=== PATIENT | female | born 1985 | race Caucasian/White ===

== ENCOUNTER 2024-01-18 21:17 | Emergency (ER) | payer BC, SELFPAY ==
--- NOTE | 2024-01-18 21:21 | ED.GENADULT ---
HPI - General Adult General Date Seen: 01/18/24 Chief complaint: Unspecified Complaint, Adult Stated complaint: facial pain, shortness of breath Time Seen by Provider: 01/18/24 21:21 History of Present Illness HPI narrative: This is a pleasant 39-year-old female who has no long-term medical conditions, but recent elevated blood pressure readings in her primary care office. She is now on losartan for high blood pressure. Patient reports that over the past several months she has had significant weight gain of unclear etiology. She has been working with her primary care doctor for that and has been referred to an sr. manager marketing, but that appointment is still delayed a few more weeks. Because of high blood pressure readings noted in the office a couple of weeks ago she is now on losartan for high blood pressure. She has also had lab checks that were ?normal? in the doctor's office a month or 2 ago and again a few weeks ago. She recalls that about a month ago she had an episode where she had a bad left facial and left-sided headache that lasted a couple of days and was associated with nausea and vomiting. It got better. She started having another episode of headache like that yesterday afternoon. She was at her friend's house when the headache started. It was nonexertional. The headache was not abrupt in onset or severe in onset. It started gradually and has been getting steadily worse since yesterday. No known injury. No known carbon monoxide exposure. No stiff neck. No photophobia. No blurry vision. No unilateral numbness or tingling. She does note that today with her headache getting where she is having a little bit of numbness in her left forearm and hand, right hand, and a little bit in her feet. No sore throat. No nasal congestion. No cough. No known influenza exposure. No fevers at home. She was noted to have a low-grade fever at the time of triage of 99.7. She was surprised by this. She also notes that her blood pressure was a bit elevated this morning and she recheck this afternoon is a headache got worse and it went higher. She is not having any chest pain. No swelling in her legs. No change in urination. She does not think she is . Related Data Home Medications Medication Instructions Recorded Confirmed cyclobenzaprine 10 mg tablet 10 mg PO PRN 01/18/24 01/18/24 losartan 25 mg tablet 25 mg PO DAILY 01/18/24 01/18/24 Allergies Allergy/AdvReac Type Severity Reaction Status Date / Time No Known Drug Allergies Allergy Verified 01/18/24 21:25 [facility] Social History Smoking Status: Never smoker Do you use any of these nicotine containing products: None How often do you have a drink containing alcohol: never AUDIT-C Alcohol total score: 0 Non-prescribed substance use: denies use Exam Narrative: Exam Narrative: Constitutional: Appears well-developed and well-nourished. Alert. Conversant. Non toxic. HENT: Head: Atraumatic. No depressed skull fracture, Raccoon Eyes, Toure's sign, or hemotympanum. Face normal. TMs normal Nose: Nose normal. No sinus tenderness to percussion. Mouth/Throat: Oral mucosa is clear and moist. no trismus. Pharynx normal. Tonsils symmetric. No tonsillar enlargement, erythema, or exudate. Eyes: Conjunctivae normal. EOM normal. Pupils equal, round, and reactive to light. No scleral icterus. Neck: Normal range of motion. Neck supple. No tracheal deviation present. No stiffness. No JVD Cardiovascular: Normal rate, regular rhythm. No gallop. No friction rub. No murmur heard. Symmetric radial and PT artery pulses Pulmonary/Chest: Effort normal. No stridor. No respiratory distress. No wheezes. No rales. No rhonchi . Abdominal: Soft. No distension. No mass. No tenderness. No rebound. No guarding. Musculoskeletal: RUE: Normal range of motion. No tenderness. No deformity LUE: Normal range of motion. No tenderness. No deformity RLE: Normal range of motion. No edema. No tenderness. No deformity LLE: Normal range of motion. No edema. No tenderness. No deformity Neurological: Mental status normal. Attention normal. Alert and oriented x3. GCS 15. Memory normal. Speech fluent. Cognition normal. Cranial Nerves intact II-XII except I did not formally test gag or visual acuity. EOMI. Palate elevates symmetrically and tongue protrudes in the midline. 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 coordination normal. Gait normal. Skin: Skin is warm and dry. No rash noted. No pallor. Normal capillary refill. Psychiatric: Normal mood. Normal affect. Const: Vital Signs, click to edit/add: Vital Signs - 24 hr 01/18/24 21:24 01/18/24 21:57 01/18/24 22:27 Temperature 99.9 F H Pulse Rate 88 Pulse Rate [Right Pulse Oximeter] 84 Respiratory Rate 20 20 Blood Pressure 138/103 H Blood Pressure [Ri ght Upper Arm] 191/104 H Pulse Oximetry 99 98 95 Oxygen Delivery Me thod Room Air 01/18/24 22:34 Temperature 99.9 F H Pulse Rate Pulse Rate [Right Pulse Oximeter] Respiratory Rate Blood Pressure Blood Pressure [Ri ght Upper Arm] Pulse Oximetry Oxygen Delivery Me thod Course Course ED Course: Recheck-headache improving. Much better but not gone. Reevaluation(s) Reevaluation #1: Recheck-headache further improved. Now complaining of pain at her IV site. I evaluated. It looks like her IV infiltrated and she has some saline underneath the skin. I turned off the IV. I asked nurses to check the IV site of the agree it is infiltrated remove the IV. She had received her headache pain medications about 45 minutes prior to infiltration of the IV. I think this is only infiltration of saline which should improve with conservative treatment. Reevaluation #2: Recheck-labs back and reassuring. Patient continued to feel better. She is comfortable discharging home. Vital Signs Vital signs: Initial Vital Signs Temperature 99.9 F H 01/18/24 21:24 Temperature Source Temporal Artery Scan 01/18/24 21:24 Pulse Rate 84 01/18/24 21:24 Respiratory Rate 20 01/18/24 21:24 Blood Pressure 191/104 H 01/18/24 21:24 Blood Pressure Mean 133 H 01/18/24 21:24 Blood Pressure Position Sitting 01/18/24 21:24 Pulse Oximetry 99 01/18/24 21:24 Oxygen Delivery Method Room Air 01/18/24 21:24 Vital Signs Temperature 99.9 F H 01/18/24 21:24 Pulse Rate 84 01/18/24 21:24 Respiratory Rate 20 01/18/24 21:24 Blood Pressure 191/104 H 01/18/24 21:24 Pulse Oximetry 99 01/18/24 21:24 Oxygen Delivery Method Room Air 01/18/24 21:24 Temperature 99.9 F H 01/18/24 22:34 Pulse Rate 88 01/18/24 22:27 Respiratory Rate 20 01/18/24 22:27 Blood Pressure 138/103 H 01/18/24 22:27 Pulse Oximetry 95 01/18/24 22:27 Oxygen Delivery Method Room Air 01/18/24 21:24 Medications Administered Medications: Discontinued Medications Generic Name Dose Route Start Last Admin Trade Name Iasiahq PRN Reason Stop Dose Admin Diphenhydramine HCl 12.5 mg 01/18/24 21:40 01/18/24 21:30 Diphenhydramine 50 Mg/Ml Inj IVP 01/18/24 21:41 12.5 mg ONCE ONE Administration Sodium Chloride 1,000 mls @ 1,000 mls/hr 01/18/24 21:45 01/18/24 22:34 0.9 % Sodium Chloride 1000 Ml IV 01/18/24 22:44 Infused .Q1H LORELEI Infusion Ketorolac Tromethamine 15 mg 01/18/24 21:40 01/18/24 21:30 Ketorolac 15 Mg/Ml Inj IVP 01/18/24 21:41 15 mg ONCE ONE Administration Metoclopramide HCl 10 mg 01/18/24 21:40 01/18/24 21:30 Metoclopramide Hcl 5 Mg/Ml Inj IVP 01/18/24 21:41 10 mg ONCE ONE Administration Medical Decision Making MDM Narrative Medical decision making narrative: Ths patient presents with a left-sided facial pain/headache, as well as high blood pressure readings at home. Along with this she had also reported to the triage nurse some shortness of breath at home and tingling in her hands and feet. A broad differential diagnosis was considered including tension, migraine, analgesic rebound, occipital neuralgia, etc. Other less common but serious causes considered included meningitis, encephalitis, subarachnoid bleed, stroke, tumor, etc. headache was not abrupt in onset or maximal within 1 hour of onset and history provided really does not suggest aneurysmal subarachnoid hemorrhage or cervical artery dissection. However with no previous neuro imaging we did go ahead with noncontrast CT and it is normal. At this point I do not think the patient needs lumbar puncture to further evaluate for subarachnoid hemorrhage. Although she has low-grade fever she is clinically nontoxic, has no neck stiffness and I do not think she has bacterial meningitis. At this point the risk of lumbar puncture and post is dural puncture headache would outweigh the potential benefit. She also had elevated blood pressure readings when she presented. She describes her blood pressure rising throughout the day today as her headache got worse. Suspect the pain is probably driving her headache up. There is no focal deficits to suggest stroke. She is not . At this point I do not think she needs MR imaging to look for press. No visual symptoms to suggest pseudotumor cerebri. Laboratory workup for hypertension shows no sign of acute end-organ damage. Blood pressure actually came down from maximum of 191/110 down to about 160/80 after treatment of her headache. In terms of the fever, cause is unclear. She only has a low-grade temperature. No other symptoms to clearly guide treatment. No signs his sinusitis on her head CT and no recent nasal congestion or other symptoms to clearly suggest sinusitis. No urinary symptoms. No cough. COVID/influenza/RSV swab negative. Fever could potentially be viral. Patients questions were answered and they feel improved after above interventions in ED. Supportive outpatient management is therefore indicated. Headache precautions given for home. Lab Data Labs: Lab Results 01/18/24 01/18/24 Range/Units 21:48 21:57 WBC 5.81 (4.50-11.00) K/uL RBC 4.83 (4.00-5.20) m/uL Hgb 11.0 L (12.0-16.0) gm/dL Hct 35.2 (33.0-51.0) % MCV 73 L (80-100) fL MCH 23 L (26-34) pg MCHC 31 L (32-36) gm/dL RDW Coeff of Carlos 15.7 H (11.5-15.5) % Plt Count 282 (140-440) K/uL Neut % (Auto) 57.7 (42.0-72.0) % Lymph % (Auto) 29.4 (20-44) % Gregg % (Auto) 10.3 (0.0-11.0) % Eos % (Auto) 2.2 (0.0-7.0) % Baso % (Auto) 0.2 (0.0-3.0) % Neut # (Auto) 3.35 (1.7-7.0) K/uL Lymph # (Auto) 1.71 (0.90-2.90) K/uL Gregg # (Auto) 0.60 (0.00-0.90) K/UL Eos # (Auto) 0.13 (0.00-0.50) K/uL Baso # (Auto) 0.01 (0.00-0.30) K/uL Abs Immat Gran (auto) 0.01 (0.00-0.30) K/uL Imm/Tot Granulo (auto) 0.2 % Sodium 135 (135-149) mmol/L Potassium 3.9 (3.6-5.1) mmol/L Chloride 104 (96-114) mmol/L Carbon Dioxide 22 (20-32) mmol/L Anion Gap 9 (7-15) mEq/L BUN 16 (5-24) mg/dL Creatinine 0.5 (0.5-1.5) mg/dL Estimated Creat Clear 144.21 Estimated GFR 124 ml/min Glucose 114 (60-115) mg/dL Calcium 8.8 (8.4-10.6) mg/dL Troponin I < 0.01 L (0.01-0.04) ng/mL HCG, Qual Negative (Negative) SARS-CoV-2 (PCR) Negative SARS-CoV-2 (Negative) Influenza Type A (PCR) Negative PCR FLU A (Negative) Influenza Type B (PCR) Negative PCR FLU B (Negative) RSV (PCR) Negative PCR RSV (Negative) Imaging Data CT scan - head: Attestation: I have reviewed the pertinent imaging results. Radiologist's impression: IMPRESSION: 1. No evidence of acute infarction, intracranial hemorrhage, or mass-effect seen. ECG Data Attestation: I personally reviewed and interpreted this ECG as follows: Interpretation: Normal sinus rhythm Rate: 80 NV: 154 QRS axis: Normal axis. No pathologic Q-waves. No delta waves. ST segment/T wave: No ST segment elevation or depression QTc: 433 Discharge Plan Discharge Clinical Impression: Fever, Headache, High blood pressure Patient Disposition: Home, Self-Care Condition: Stable Instructions: Fever in Adults (ED), Acute Headache (DC) Additional Instructions: As we discussed, please monitor your symptoms carefully. If you have any problems, come back to the ER right away, especially if you have worsening headache, higher fever, blurry vision, nausea or vomiting, or stiff neck. Please recheck with your regular doctors soon as possible to recheck your blood pressure and with your sr. manager marketing as soon as possible. Prescriptions: No Action losartan 25 mg tablet 25 mg PO DAILY cyclobenzaprine 10 mg tablet 10 mg PO PRN Follow Up/Referrals: Bernice Mcnair MD [Primary Care Provider] - Stand Alone Forms: [employer] Management Info Instructions
[2024-01-18 21:24] VITALS: BP 191/104; PULSE 84; RESP 20; TEMP 37.7; O2SAT 99; BMI 36.5
[2024-01-18] MEDS: 0.9 % SODIUM CHLORIDE 1000 ml 1,000 ML IV (21:30)
[2024-01-18] MEDS: METOCLOPRAMIDE HCL 5 MG/ML INJ 10 MG IVP (21:30)
[2024-01-18] MEDS: KETOROLAC 15 MG/ML inj IVP (21:30)
[2024-01-18] MEDS: diphenhydrAMINE 50 MG/ML inj 12.5 MG IVP (21:30)
--- NOTE | 2024-01-18 21:40 | CT_ITS ---
Patient: GAVIN GOMEZ Facility:?[facility] Patient ID:?[id number] Site Patient ID:?[id number]. Site :?[id number] Study:?CT-Head W/O-01/18/2024 10:12:25 PM Ordering Physician:AMOS Final Report: INDICATION: Frontal headache TECHNIQUE: CT Head without i.v. contrast. Coronal and sagittal reformats were obtained. COMPARISON: None FINDINGS: CSF space: The ventricles are normal for age. Brain: No evidence of mass, acute infarction or hemorrhage is seen. No mass- effect or midline shift is seen. The brain parenchyma is otherwise normal in appearance with preservation of the brandon-white matter junction. Calvarium: The visualized paranasal sinuses are well aerated. The mastoid air cells are clear. The visualized orbits are grossly unremarkable. The calvarium is unremarkable in appearance with no fractures identified. IMPRESSION: 1. No evidence of acute infarction, intracranial hemorrhage, or mass-effect seen. Please note that all CT scans at this facility use dose modulation, iterative reconstruction, and/or weight-based dosing when appropriate to reduce radiation dose to as low as reasonably achievable. Dictated by: Vikash Mueller MD @ 01/18/2024 22:19:13 Signed by:?Vikash Mueller MD @01/18/2024 10:19:13 PM (Electronic Signature)
[2024-01-18 21:57] VITALS: O2SAT 98
[2024-01-18 22:03] LABS: Basophils Absolute Auto 0.01 K/uL (0.00-0.30); Basophils Percent Auto 0.2 % (0.0-3.0); Eosinophils Absolute Auto 0.13 K/uL (0.00-0.50); Eosinophils Percent Auto 2.2 % (0.0-7.0); Hematocrit 35.2 % (33.0-51.0); Immature Granulocytes Abs Auto 0.01 K/uL (0.00-0.30); Immature Granulocytes Pct Auto 0.2 %; Lymphocytes Absolute Auto 1.71 K/uL (0.90-2.90); Lymphocytes Percent Auto 29.4 % (20-44); Mean Corpuscular HGB Conc 31 gm/dL (32-36); Mean Corpuscular Hemoglobin 23 pg (26-34); Mean Corpuscular Volume 73 fL (80-100); Monocytes Percent Auto 10.3 % (0.0-11.0); Neutrophils Absolute Auto 3.35 K/uL (1.7-7.0); Neutrophils Percent Auto 57.7 % (42.0-72.0); Platelet Count* 282 K/uL (140-440); RDW Coefficient of Variation % 15.7 % (11.5-15.5); Red Blood Count 4.83 m/uL (4.00-5.20); White Blood Count* 5.81 K/uL (4.50-11.00)
--- OUTSIDE RECORDS SUMMARY | 2024-01-18 22:03 | XMS_ITS | Clinical Summary ---
Author Name Unknown Organization [facility] Address [place], [place] [address] Care Team Providers Care Hat Sizer Name Role Phone Bernice Mcnair MD Primary Care Provider Allergies Active Allergy Reactions Criticality Noted Date Comments Hydrocodone-Acetaminophen Vomiting 03/27/2009 Medications Medication Sig Dispensed Refills Start Date End Date Status desogestrel-ethi nyl estradiol 0.15-30 mg-mcg (Apri) tabletIndication s:Vagina bleeding,History of heavy vaginal bleeding Take 1 Tablet by mouth once daily. 90 Tablet 3 12/17/2023 Active FLUoxetine (PROZAC) 20 mg capsuleIndicatio ns:Anxiety Take 1 Capsule (20 mg) by mouth every morning. 90 Capsule 3 12/17/2023 Active tacrolimus 0.1% (PROTOPIC) 0.1 % ointmentIndicati ons:Chronic eczema Apply topically to affected area(s) two times daily. 60 g 3 12/17/2023 Active losartan (COZAAR) 25 mg tabletIndication s:HTN (hypertension) Take 1 Tablet (25 mg) by mouth once daily. 30 Tablet 1 01/02/2024 Active metroNIDAZOLE 0.75% vaginal (METROGEL) 0.75 % (37.5mg/5 gram) vaginal gelIndications:B V (bacterial vaginosis) Insert 1 Applicatorful into the vagina at bedtime for 5 days. 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 DOES NOT want to breastfeed. Supervision of other normal 06/22/2012 03/23/2013 Overview: It's a girl! TDaP given 12/21/2012 Patient does NOT plan to breastfeed GBS negative HEMOGLOBIN (g/dL) Date Value 01/05/2013 11.6* Encounters Date Type Department Care Team Description 01/02/2024 2:45 PM CDT Office Visit [facility] [address] [place] [address] Agustina Dobson MD Blood Pressure 01/02/2024 Travel 12/24/2023 Telephone [facility] [address] [place] [address] Bernice Mcnair MD Prior Authorization (tacrolimus 0.1% (PROTOPIC) 0.1 % ointment Approved November 24, 2023 to December 23, 2024) 12/17/2023 4:05 PM SACK MAKER Office Visit [facility] [address] [place] [address] Bernice Mcnair MD Physical (38 yr/Finds that it is painful just to insert a tampon and will hurt when urinating and it is vaginal. Started about three months ago. [place] but the touch leading up to does.) 12/17/2023 Travel from Last 3 Months Immunizations Name Administration Dates Next Due DTaP 05/11/1991, 8,1986,07/19,1986 Hepatitis A (Adult) 01/02/2009,10/16/2007 Hepatitis B (Peds) 02/28/1999, 8,08/02/1998,04/14 Inactivated Polio Vaccine 11/14/1987,05/1986,1986,05/04 Influenza A (H1N1), Inactiva vidal (Age >=3 Years) 10/11/2009 Influenza, IIV3 (Age >=3 years) 06/30/2012,11/02,10/16/2007 MMR 04/14/1998,07/11/1987 Meningococcal Vaccine (Menactra) 10/16/2007 Td (Age >=7 Years) 04/14/1998 Tdap 12/25/2022,12/21/2012,10/11/2009 Typhoid (injectable) 01/02/2009 Family History Medical History Relation Name Comments Hypertension Father Heart Disease Maternal Grandfather CABG a t 62 Hypertension Maternal Grandfather Heart Disease Paternal Grandfather MT at 54 Hypertension Paternal Grandfather Cancer Paternal Grandmother skin ca ncer Grandparent Cancer-breast No Family History Relation Name Status Comments Father Maternal Grandfather Paternal Grandfather Paternal Grandmother Social History Tobacco Use Types Packs/Day Years Used Date Smoking Tobacco: Former Cigarettes 0.3 9.3 0 03/2001 - 06/27/2010 Smokeless Tobacco: Never Comments:quit 05/2010 Alcohol Use Standard Drinks/Week Comments Yes 0 (1 standard drink = 0.6 oz pur e alcohol) rare PHQ-2 Answer Date Recorded PHQ-2 TOTAL SCORE 0 12/17/2023 Social Connections Answer Date Recorded Frequency of Communication with Friends and Fami ly Not on file 12/26/2023 Financial Resource Strain Answer Date R ecorded Difficulty of Paying Living Expenses 3 12/25/2022 Difficulty of Paying Living Expenses Not on file 12/25/2022 Food Insecurity Answer Date Recorded Worried About Running Out of Food in the Last Ye ar 1 12/25/2022 Transportation Needs Answer Date Record ed Lack of Transportation (Medical) 1 12/25/2022 Housing Stability Answer Date Recorded Unable to Pay for Housing in the Last Year 1 12/25/2022 Sex and Gender Information Value Date Recorded Sex Assigned at Not on file Gender Identity Not on file Sexual Orientation Not on file Obstetrics History Para Term AB IAB SAB Ectopic Multiple Livin g Live Births 3 3 2 1 2 1 Date Outcome GA Total Labor Labor/2nd/3rd Weight Sex Delivery Anes PTL Wendy A1 A5 Name Cl in 05/17 Term 40w 0d 10h 00m/ F Vag Yue Comments:System Genera vidal. Please review and update details. 02/09 Term 39w 0d 5h 00m/0h 05m/ 3.4 kg (7 lb 8 oz) F VAGINAL LISETTE Intra theca l N Alix ng Evely n Tappe r Complications:None Comments:System Genera vidal. Please review and update details. 01/28 21w 1d M SPONTANEO US Feta l Alivia se Last Filed Vital Signs Vital Sign Reading Time Taken Comments Blood Pressure 141/83 01/02/2024 2:55 PM CDT Pulse 81 01/02/2024 2:51 PM CDT Temperature 36.8 ??C (98.3 ??F) 01/18/2021 2:09 PM CD T Respiratory Rate 14 06/27/2023 10:5 0 AM CDT Oxygen Saturation 100% 01/02/2024 2:51 PM CDT Inhaled Oxygen Concentration - - Weight 103.8 kg (228 lb 12.8 oz) 01/02/2024 2:51 PM CDT Height 170.2 cm (5' 7) 12/17/2023 4:15 PM SACK MAKER Body Mass Index 35.84 12/17/2023 4:15 PM SACK MAKER Plan of Treatment Upcoming Encounters Date Type Department Care Team (Late st Contact Info) Description 01/23/2024 3:30 PM CDT Orders Only [facility] [address] [place] [address] Lab, [place] 03/26/2024 3:30 PM CDT Office Visit [facility] [address] [place] [id number] Catherine Whitten, TAX ACCOUNTING MANAGER [address] [place] [id number] Health Maintenance Due Date Last Done Comments COVID-19 vaccine series ( season) 2023 Influenza for age 9-49 06/13/2024 2, 11/02/2010, 10/11/2009, Additional history exists BMI (ht and wt on same day) for age 18+ 12/16/2024 12/17/2023, 05/07/2023, 12/25/2022, Additional history exists Depression screening for age 12+ 12/16/2024 12/17/2023, 09/02/2022, 02/20/2022, Additional history exists Pap test for age 21-65 01/11/2026 , 01/11/2021, 06/07/2016, Additional history exists Tetanus booster 12/25/2032 12/25/2022, 12/11, 10/11/2009, Additional history exists HIV for age 15-65 Completed 11/29/2016, , 10/16/2010 Hepatitis C screening for age 18-79 Completed 12/25/2022 Tdap Completed 12/25/2022, 12/11, 10/11/2009 Pneumococcal series for age 6-64 Aged Out No longer eligible based on patient's age to complete this topic Procedures Procedure Name Priority Date/Time Associated Diagnosis Comments URINALYSIS MICROSCOPIC Routine 01/02/2024 3:46 PM CDT HTN (hypertension) UA W/ SEDIMENT EXAM REFLEXED PER CRITERIA Routine 01/02/2024 3:46 PM CDT HTN (hypertension) LIPID PANEL W REFLEX MEASURED LDL Routine 01/02/2024 3:42 PM CDT Lipid screening BASIC METABOLIC PANEL Routine 01/02/2024 3:42 PM CDT HTN (hypertension) TRICHOMONAS, ARLEN, AND BACTERIAL VAGINOSIS BY HELADIO Routine 12/17/2023 5:17 PM SACK MAKER Vaginal pain LC HCV ANTIBODY RFX TO QUANT PCR Routine 12/25/2022 5:05 PM CDT Need for hepatitis C screening test ANATOMIC PATHOLOGY ASSISTANT THIN PREP PAP SCREEN IMAGED Routine 01/11/2021 2:20 PM CDT Screening for cervical cancer ANTI HIV 1/2 Routine 11/29/2016 10:16 AM SACK MAKER , unspecified gestational age from Last 3 Months or Most Recently Relevant to Health Maintenance Results * URINALYSIS MICROSCOPIC (01/02/2024 3:46 PM CDT) RBC 0-2 0-2, None Seen /HPF 01/02/2024 3:52 PM CDT [facility] WBC 0-2 0-2, 3-5, None Seen /HPF 01/02/2024 3:52 PM CDT [facility] BACTERIA Few None Seen, Rare, Few Bacteria/H PF 01/02/2024 3:52 PM CDT [facility] EPITHELIAL CELLS Few None Seen, Few Epi/HPF 01/02/2024 3:52 PM CDT [facility] Urine URINE SPECIMEN / Unknown Non-Blood / Unknown 01/02/2024 3:46 PM CDT 01/02/2024 3:46 PM CDT Agustina Dobson MD URINE [facility] [address] [place] [address], [place] [phone] * (ABNORMAL) UA W/ SEDIMENT EXAM REFLEXED PER CRITERIA (01/02/2024 3:46 PM CDT) COLOR Yellow Yellow Color 01/02/2024 3:52 PM CDT [facility] CLARITY Clear Clear Clarity 01/02/2024 3:52 PM CDT [facility] SPECIFIC GRAVITY,URINE 1.020 1.010, 1.015, 1.020, 1.025 01/02/2024 3:52 PM CDT [facility] PH,URINE 6.5 6.0, 7.0, 8.0, 5.5, 6.5, 7.5, 8.5 01/02/2024 3:52 PM CDT [facility] UROBILINOGEN, QUALITATIVE Normal Normal EU/dl 01/02/2024 3:52 PM CDT [facility] PROTEIN, URINE Negative Negative mg/dL 01/02/2024 3:52 PM CDT [facility] GLUCOSE, URINE Negative Negative mg/dL 01/02/2024 3:52 PM CDT [facility] KETONES,URINE Negative Negative mg/dL 01/02/2024 3:52 PM CDT [facility] BILIRUBIN,URI NE Negative Negative 01/02/2024 3:52 PM CDT [facility] OCCULT BLOOD,URINE Trace(A) Negative 01/02/2024 3:52 PM CDT [facility] NITRITE Negative Negative 01/02/2024 3:52 PM CDT [facility] LEUKOCYTE ESTERASE Negative Negative 01/02/2024 3:52 PM CDT [facility] Urine URINE SPECIMEN / Unknown Non-Blood / Unknown 01/02/2024 3:46 PM CDT 01/02/2024 3:46 PM CDT Agustina Dobson MD URINE [facility] [address] [place] [address], * (ABNORMAL) LIPID PANEL W REFLEX MEASURED LDL (01/02/2024 3:42 PM CDT) CHOLESTEROL,TOTAL 171 100 - 199 mg/dL 01/02/2024 9:30 PM CDT [facility] Comment: Cholesterol, Total Reference Ranges Desirable <200 mg/dL Borderline 200-239 mg/dL High >=240 mg/dL TRIGLYCERIDES 219(H) <150 mg/dL 01/02/2024 9:30 PM CDT [facility] HDL CHOLESTEROL 37(L) >40 mg/dL 9:30 PM CDT [facility] NON-HDL CHOLESTEROL 134 <145 mg/dl 01/02/2024 9:30 PM CDT [facility] CHOL/HDL RATIO 4.62(H) <4.50 01/02/2024 9:30 PM CDT [facility] LDL CHOLESTEROL 90 <=130 mg/dL 01/02/2024 9:30 PM CDT [facility] VLDL CHOLESTEROL 44(H) <=30 mg/dL 01/02/2024 9:30 PM CDT [facility] PROVIDER ORDERED STATUS RANDOM 01/02/2024 9:30 PM CDT [facility] Blood BLOOD SPECIMEN / Unknown Venipuncture / Unknown 01/02/2024 3:42 PM CDT 01/02/2024 3:44 PM CDT Agustina Dobson MD CHEMISTRY [facility] [address] [place] [address], * (ABNORMAL) BASIC METABOLIC PANEL (01/02/2024 3:42 PM CDT) SODIUM 137 136 - 145 mmol/L 01/02/2024 9:30 PM CDT [facility] POTASSIUM 3.8 3.5 - 5.1 mmol/L 01/02/2024 9:30 PM CDT [facility] CHLORIDE 101 98 - 107 mmol/L 01/02/2024 9:30 PM CDT [facility] CO2,TOTAL 25 22 - 29 mmol/L 01/02/2024 9:30 PM CDT [facility] ANION GAP 11 5 - 18 01/02/2024 9:30 PM CDT [facility] GLUCOSE 130(H) 70 - 99 mg/dL 01/02/2024 9:30 PM CDT [facility] CALCIUM 8.7 8.6 - 10.0 mg/dL 01/02/2024 9:30 PM CDT [facility] BUN 10 6 - 20 mg/dL 01/02/2024 9:30 PM CDT [facility] CREATININE 0.64 0.50 - 0.90 mg/dL 01/02/2024 9:30 PM T [facility] BUN/CREAT RATIO 16 10 - 20 4 9:30 PM CDT [facility] eGFR >90 >90 mL/min/1.7 3m2 01/02/2024 9:30 PM CDT [facility] Comment:As of 2021, eG FR is calculated by the CKD-EPI creatinine equation without race adjustment. ??eGFR can be influenced by muscle mass, exercise, and diet. ??The reported eGFR is an estimation only and is only applicable if the renal function is stable. Blood BLOOD SPECIMEN / Unknown Venipuncture / Unknown 01/02/2024 3:42 PM CDT 01/02/2024 3:44 PM CDT Agustina Dobson MD CHEMISTRY Performing Organization Address [facility] Co de Phone Number [facility] [address] [place] [address], [place] * (ABNORMAL) TRICHOMONAS, ARLEN, AND BACTERIAL VAGINOSIS BY HELADIO (12/17/2023 5:17 PM SACK MAKER) Pathologist [facility] ARLEN SPECIES Negative Negative 4 5:39 PM SACK MAKER [facility] ARLEN GLABRATA Negative Negative 12/18/2023 5:39 PM SACK MAKER [facility] TRICHOMONAS VVA Negative Negative 4 5:39 PM SACK MAKER [facility] BACTERIAL VAGINOSIS Positive(A) Negative 12/18/2023 5:39 PM SACK MAKER [facility] Other VAGINAL SWAB / Unknown Non-Blood / Unknown 12/17/2023 5:17 PM SACK MAKER 12/17/2023 5:17 PM SACK MAKER Bernice Mcnair MD MICROBIOLOGY Performing Organization Address [facility]/ZIP Co de Phone Number [facility] [address] [place] [address], [place] * LC HCV ANTIBODY RFX TO QUANT PCR (12/25/2022 5:05 PM CDT) HCV Ab Non Reactive Non Reactive 12/28/2022 1:[address] [facility] ([facility]) Blood BLOOD SPECIMEN / Unknown Venipuncture / Unknown 12/25/2022 5:05 PM CDT 12/25/2022 5:08 PM CDT Narrative [facility] ([facility]) - 12/28/2022 1:10 PM CDT Performed at: ??01 - [facility] [address] [place], [place] ??[id number] Languages And Literature Instructor: Zay Wright MD, Phone: ??[phone] Bernice Mcnair MD LABORATORY [facility] ([facility]) [facility] [place] [address], * ANATOMIC PATHOLOGY ASSISTANT THIN PREP PAP SCREEN IMAGED [[id number]] (01/11/2021 2:20 PM CDT) Case Report Gynecologic Cytology Report ? Case: [id number] ? Authorizing Provider: ??Bernice Mcnair MD Collected: ? 01/11/2021 1420 ? Ordering Location: ? [facility] ?? Received: ?01/11/2021 1452 ? Clinic ? First Screen: ?Netta Farias ? Specimen: ?ANATOMIC PATHOLOGY ASSISTANT ThinPrep Vial Screening, Cervical ? 01/23/2021 7:40 AM CDT [facility] INTERPRETATION/ RESULT NEGATIVE FOR INTRAEPITHELIAL LESION OR MALIGNANCY (NIL) (none) 01/23/2021 7:40 AM CDT [facility] [employer] [facility] ENTRAL LABORATORY IMEN ADEQUACY Satisfactory for evaluation Endocervical component present 01/23/2021 7:40 AM CDT [facility] HPV REQUEST HPV and PAP 01/23/2021 7:40 AM CDT [facility] Date of LMP 01/01/2021 01/23/2021 7:40 AM CDT [facility] LABORAT[facility]-C ENTRAL LABORATORY Last Pap Date 06/07/16 01/23/2021 7:40 AM CDT [facility]-C ENTRAL LABORATORY Last Pap Result NIL 7:40 AM CDT [facility] LAB[facility]-C ENTRAL LABORATORY Abnormal Pap or [place] Bx in last 5 years No 01/23/2021 7:40 AM CDT [facility] LABORAT[facility]-C ENTRAL LABORATORY Menstrual Status Regular Periods 01/23/2021 7:40 AM CDT [facility] LABORAT[facility]-C ENTRAL LABORATORY [place] Bx Done Today No 01/23/2021 7:40 AM CDT [facility] [employer] [facility]-C ENTRAL LABORATORY Additional Information None given 01/23/2021 7:40 AM CDT [facility] LABORATORY-C ENTRAL LABORATORY Comment: Cytology is screened at [facility] [employer] [facility], Central Laboratory - [address] [address] [facility] - [address], [place] [address] and [facility] - [address] [place] [address] Interpreted at [facility] - [address], [place] [address] Automated Review Successful 01/23/2021 7:40 AM CDT [facility] EN[facility] Comment:Specimen processed s uccessfully by automated chemical process analyst device, [employer] Imaging System, [employer] ANCILLARY TESTING ANATOMIC PATHOLOGY ASSISTANT HPV Ordered, Please see separate report 01/23/2021 7:40 AM CDT [facility] ENTRLA LABORATORY Note The pap test is a screening technique, not a diagnostic procedure. It is used primarily to screen for squamous cancers and precursor lesions. Published studies have shown that it is subject to both false negative and false positive results. The pap test should not be used as the sole means to diagnose or exclude pre-malignant and malignant lesions. 01/23/2021 7:40 AM CDT [facility] Other (Cervical) Non-Blood / Unknown 01/11/2021 2:20 PM CDT 01/11/2021 2:52 PM CDT Bernice Mcnair MD PATHOLOGY/CYTOL OGY [facility] [address] [place] [address], * ANTI HIV 1/2 (11/29/2016 10:16 AM SACK MAKER) HIV-1/HIV-2 ANTIBODY Non-Reacti ve Non-Reacti ve 11/29/2016 4:15 PM SACK MAKER [facility] Blood BLOOD SPECIMEN / Unknown Venipuncture / Unknown 11/29/2016 10:16 AM SACK MAKER 11/29/2016 10:16 AM SACK MAKER Narrative [facility] - 11/29/2016 4:15 PM SACK MAKER HIV-1 p24 and HIV-1/HIV-2 Ab not detected Bernice Mcnair MD SEND OUTS [facility]AL LABORATORY [address] [place] [address], [place] from Last 3 Months or Most Recently Relevant to Health Maintenance Advance Directives * Full Code (Latest Code Status on File) Date Activated Date Inactivated Comments 04/03/2009 10:09 AM 04/04/2009 9:58 AM * Full Code Date Activated Date Inactivated Comments 04/03/2009 6:19 AM 04/03/2009 10:09 AM Care Teams Hat Sizer Relationship Specialty Start Date End Date Bernice Mcnair MD [facility] [place] [address] PCP - General Family Practice 05/06/12
[2024-01-18 22:07] LABS: Slide Review Reflex No
[2024-01-18 22:18] LABS: Chloride* 104 mmol/L (96-114); Potassium* 3.9 mmol/L (3.6-5.1); Sodium* 135 mmol/L (135-149)
[2024-01-18 22:21] LABS: Anion Gap 9 mEq/L (7-15); Blood Urea Nitrogen* 16 mg/dL (5-24); Carbon Dioxide* 22 mmol/L (20-32); Creatinine* 0.5 mg/dL (0.5-1.5); Est. Creatinine Clearance* 144.21; Estimated Glomerular Filt Rate 124 ml/min; Glucose* 114 mg/dL (60-115)
[2024-01-18 22:22] LABS: Calcium* 8.8 mg/dL (8.4-10.6)
[2024-01-18 22:27] VITALS: BP 138/103; PULSE 88; RESP 20; O2SAT 95
[2024-01-18 22:28] LABS: PCR FLU A Negative PCR FLU A (Negative); PCR FLU B Negative PCR FLU B (Negative); PCR RSV Negative PCR RSV (Negative); SARS PCR* Negative SARS-CoV-2 (Negative)
[2024-01-18 22:32] LABS: HCG Qualitative Serum* Negative (Negative)
[2024-01-18 22:34] VITALS: TEMP 37.7
[2024-01-18 22:34] LABS: Troponin I* < 0.01 ng/mL (0.01-0.04)
[2024-01-18 23:18] VITALS: BP 164/81; PULSE 79; RESP 20; TEMP 37.7; O2SAT 95
[2024-01-18 23:20] VITALS: BP 164/81; PULSE 79; RESP 20; TEMP 37.7
== END 2024-01-18 23:21 | disposition home or self-care (01) ==
PROVIDERS: Emergency Provider Emergency Medicine; PCP Family Medicine
DX: R50.9 Fever, unspecified (principal); R51.9 Headache, unspecified
CPT/HCPCS: 36415; 70450; 80048; 84484; 84703; 85025; 87631; 93005; 94761; 96374; 96375; 99284; 99285; J1200; J1885; J2765; J7030

== ENCOUNTER 2025-02-21 20:15 | Outpatient (CLI) | payer BC, SELFPAY | END 2025-02-21 20:16 | disposition home or self-care (01) | LOC: SLEEP 20:16 | PROVIDERS: PCP Family Medicine; Visit Provider Internal Medicine | DX: G47.33 Obstructive sleep apnea (adult) (pediatric) (principal) | CPT/HCPCS: 95811 ==